=== PATIENT | female | born 1985 | race Caucasian/White ===

== ENCOUNTER → 2019-07-05 14:05 | Observation (INO) ==
[2019-07-05 13:27] LABS: Basophils % 0.3 %; Eosinophils # 0.1 K/mcL (0.0-0.6); Eosinophils % 0.6 %; Hematocrit 34.1 % (35.3-44.9); Hemoglobin 11.6 g/dL (11.5-15.4); Immature Granulocytes % 1.2 % (0-4); Lymphocytes # 1.3 K/mcL (0.6-4.6); Mean Corpuscular Hemoglobin 31.4 pg (28.0-33.3); Mean Corpuscular Volume 92.2 fL (83.0-100.0); Mean Platelet Volume 10.2 fL (9.4-12.4); Monocytes # 0.6 K/mcL (0.0-1.3); Monocytes % 5.3 %; Neutrophils # 8.6 K/mcL (1.6-8.9); Platelet Count 174 K/mcL (140-400); Red Cell Distribution Width 14.6 % (11.5-14.5); Segmented Neutrophils % 80.6 %; White Blood Count 10.6 K/mcL (4.3-11.1)
[2019-07-05 13:38] LABS: Protein/Creatinine Ratio,Urine 0.17 mg/mg (0.00-0.20)
[2019-07-05 13:44] LABS: Alanine Aminotransferase 12 Units/L (7-52); Aspartate Amino Transferase 11 Units/L (13-39); BUN/Creatinine Ratio 11 (6-26); Blood Urea Nitrogen 5 mg/dL (6-20); Lactate Dehydrogenase 117 Units/L (140-271); Uric Acid 4.6 mg/dL (2.3-7.6); eGFR For African Americans > 60 (> 60); eGFR For Non-African Americans > 60 (> 60)
== END | disposition home or self-care (01) ==
LOC: 1NENULAB
PROVIDERS: ADMIT Obstetrics & Gynecology; ATTEND Obstetrics & Gynecology

== ENCOUNTER 2019-09-22 03:30 | Inpatient (IN) ==
[2019-09-22] MEDS ORDERED: Lidocaine 1% 20 ML MDV ID PRN (03:48)
[2019-09-22] MEDS ORDERED: Ondansetron 4 MG/2 ML VIAL IVP PRN (03:48)
[2019-09-22] MEDS ORDERED: Famotidine 20 MG/2 ML VIAL IVP PRN (03:48)
[2019-09-22] MEDS ORDERED: Metoclopramide 10 MG/2 ML VIAL IVP PRN (03:48)
[2019-09-22] MEDS ORDERED: Naloxone 0.4 MG/ML INJ IVP PRN (03:48)
[2019-09-22] MEDS ORDERED: miSOPROStoL 25 MCG TABLET PO PRN (04:00)
[2019-09-22] MEDS: D5% in 0.45% NACL 1,000 ML IVC SCH ×2 (04:18→12:46)
[2019-09-22 04:48] LABS: Basophils % 0.3 %; Eosinophils # 0.1 K/mcL (0.0-0.6); Eosinophils % 0.8 %; Hemoglobin 11.5 g/dL (11.5-15.4); Immature Granulocytes % 0.4 % (0-4); Lymphocytes # 2.3 K/mcL (0.6-4.6); Lymphocytes % 20.2 %; Mean Corpuscular HGB Conc 33.8 g/dL (31.6-35.5); Mean Corpuscular Hemoglobin 31.3 pg (28.0-33.3); Mean Corpuscular Volume 92.4 fL (83.0-100.0); Mean Platelet Volume 11.5 fL (9.4-12.4); Monocytes # 0.7 K/mcL (0.0-1.3); Monocytes % 5.9 %; Neutrophils # 8.1 K/mcL (1.6-8.9); Platelet Count 123 K/mcL (140-400); Red Blood Count 3.68 M/mcL (3.82-4.97); Red Cell Distribution Width 14.4 % (11.5-14.5); Segmented Neutrophils % 72.4 %; White Blood Count 11.2 K/mcL (4.3-11.1)
[2019-09-22 04:57] LABS: Amphetamine Screen,Urine Negative ng/mL (Cutoff=1000); Barbiturate Screen,Urine Negative ng/mL (Cutoff=200); Benzodiazepines Screen,Urine Negative ng/mL (Cutoff=200); Cannabinoid Screen,Urine Negative ng/mL (Cutoff = 50); Cocaine Screen,Urine Negative ng/mL (Cutoff= 300); Opiate Screen,Urine Negative ng/mL (Cutoff=300); Phencyclidine Screen,Urine Negative ng/mL (Cutoff=25)
[2019-09-22] MEDS: Ringers Solution, Lactated 1,000 ML ONE ×2 (12:46→18:06)
[2019-09-22] MEDS ORDERED: Oxytocin 20 units/ LR 1000 mL 20 UNIT/1,000 ML BAG IVC SCH (13:15)
[2019-09-22] MEDS ORDERED: *HR* FentaNYL (PF) 100 MCG/2 ML VIAL IVP ONE ×2 (13:51→16:10)
[2019-09-22] MEDS ORDERED: EPHEDrine 50 MG/ML VIAL IVP PRN (17:08)
[2019-09-22] MEDS ORDERED: Epidural Premix (fent/bupiv) 110 ML EP SCH (17:15)
[2019-09-22] MEDS ORDERED: Ringers Solution, Lactated 1,000 ML ONE ×2 (18:05→21:37)
[2019-09-23] MEDS ORDERED: Ringers Solution, Lactated 1,000 ML ONE (05:44)
[2019-09-23] MEDS ORDERED: Ropivacaine/PF 0.2% 20 ML VIAL ONE (07:22)
[2019-09-23] MEDS ORDERED: *HR* FentaNYL (PF) 100 MCG/2 ML VIAL ONE (07:22)
[2019-09-23] MEDS ORDERED: Acetaminophen 325 MG TABLET PO PRN (14:59)
[2019-09-23] MEDS ORDERED: Lidocaine/EPI 1:100k 1% 30 ML VIAL INFILT ONE (14:59)
[2019-09-23] MEDS ORDERED: Lanolin 7 G OINT...G. TP PRN (14:59)
[2019-09-23] MEDS ORDERED: Benzocaine/Menthol 56 GM AEROSOL SPRAY TP PRN (14:59)
[2019-09-23] MEDS ORDERED: Ibuprofen 600 MG TABLET PO PRN (14:59)
[2019-09-23] MEDS ORDERED: Oxytocin 20 units/ LR 1000 mL 20 UNIT/1,000 ML BAG IVC SCH (14:59)
[2019-09-24] MEDS ORDERED: Prenatal Vit/FA 1 EACH TABLET PO SCH (09:00)
[2019-09-24 09:05] VITALS: BP 102/60
== END 2019-09-24 16:00 | disposition home or self-care (01) | DRG 807 ==
LOC: 1NENULAB 03:37 → 1NENUOBS 09-23 14:53
PROVIDERS: ADMIT Obstetrics & Gynecology; ATTEND Obstetrics & Gynecology